=== PATIENT | male | born 1985 | race Caucasian/White ===

== ENCOUNTER → 2019-12-13 11:10 | Outpatient (CLI) | payer OTHER, SELFPAY ==
--- NOTE | 2019-12-13 | DI.MRI.S_ITS ---
PROCEDURE: MR HEAD/BRAIN WO CON INDICATIONS: Unspecified intracranial injury TECHNIQUE: Noncontrast axial T1 spin echo, axial T2 fast spin echo, sagittal and axial FLAIR, coronal T2 fast spin echo, axial gradient echo, axial diffusion and ADC through the brain. COMPARISON: [facility], MR, MR BRAIN WITHOUT CONTRAST, 01/28/2019, 6:59. FINDINGS: Image quality: Excellent. CSF Spaces: Basal cisterns are patent. No extra-axial fluid collections. Ventricles are normal in size and shape. Brain: No intracranial masses or hemorrhage. Patten/white matter interface is normal. Brainstem appears normal. Diffusion-weighted images demonstrate no acute ischemic insult. No chronic ischemic insults. Normal intravascular flow voids are present. Skull and face: Calvarium has normal marrow signal. Orbits appear normal. Sinuses: Small right maxillary sinus mucous retention cyst versus polyp. IMPRESSION: 1. No acute intracranial process. Dictated by: Tuyet Oor M.D. on 12/13/2019 at 12:50 Approved by: Tuyet Oro M.D. on 12/13/2019 at 12:53
== END ==
PROVIDERS: Referring Provider General Practice; Visit Provider General Practice
DX: S06.9X0A Unspecified intracranial injury without loss of consciousness, initial encounter (principal); X58.XXXA Exposure to other specified factors, initial encounter
CPT/HCPCS: 70551

== ENCOUNTER → 2020-10-10 07:16 | Outpatient (CLI) | payer OTHER, SELFPAY ==
--- NOTE | 2020-10-10 | DI.MRI.S_ITS ---
PROCEDURE: MR HEAD/BRAIN WO CON INDICATIONS: intracranial injury without loss of conciousness TECHNIQUE: Noncontrast axial T1 spin echo, axial T2 fast spin echo, sagittal and axial FLAIR, coronal T2 fast spin echo, axial gradient echo, axial diffusion and ADC through the brain. COMPARISON: [facility], MR, MR BRAIN WITHOUT CONTRAST, 01/28/2019, 6:59. [facility], MR, MR HEAD/BRAIN WO CON, 12/13/2019, 11:43. FINDINGS: Image quality: Excellent. CSF Spaces: Basal cisterns are patent. No extra-axial fluid collections. Ventricles are normal in size and shape. Brain: Unchanged tiny punctate focus of susceptibility artifact in the high right parietal region. No intracranial masses or hemorrhage. Patten/white matter interface is normal. Brainstem appears normal. Diffusion-weighted images demonstrate no acute ischemic insult. No chronic ischemic insults. Normal intravascular flow voids are present. Skull and face: Calvarium has normal marrow signal. Orbits appear normal. Sinuses: Sinuses and mastoids are clear. IMPRESSION: Unchanged solitary punctate focus of susceptibility artifact in the high right parietal lobe, again nonspecific but most likely representing either calcium or hemosiderin deposition. Correlation with prior head CT examinations would be helpful to confirm the presence of any calcium in this region, or the presence of prior subarachnoid hemorrhage. Otherwise normal MRI of the brain. Dictated by: Amol Laguna M.D. on 10/10/2020 at 9:56 Approved by: Amol Laguna M.D. on 10/10/2020 at 9:59
== END ==
DX: S06.9X0A Unspecified intracranial injury without loss of consciousness, initial encounter (principal)
CPT/HCPCS: 70551